=== PATIENT | female | born 1970 | race Two or more races ===

== ENCOUNTER 2020-02-08 11:01 | Outpatient (CLI) | payer OTHER | END 2020-02-08 11:19 | disposition home or self-care (01) | LOC: LAB 11:01 | DX: Z00.00 Encounter for general adult medical examination without abnormal findings (principal); E55.9 Vitamin D deficiency, unspecified; R42 Dizziness and giddiness; N39.0 Urinary tract infection, site not specified; R05 Cough; J06.9 Acute upper respiratory infection, unspecified; E78.49 Other hyperlipidemia ==

== ENCOUNTER 2020-07-20 16:02 | Outpatient (CLI) | payer OTHER | END 2020-07-20 16:03 | disposition home or self-care (01) | LOC: PPH VACUNA 16:02 | DX: Z23 Encounter for immunization (principal) ==

== ENCOUNTER 2020-08-11 10:14 | Emergency (ER) | payer OTHER ==
[~2020-08-11] VITALS: Ht 165.1 cm; Wt 99.8 kg
== END 2020-08-11 13:40 | disposition home or self-care (01) ==
LOC: ER 10:14
DX: M62.830 Muscle spasm of back (principal); M54.5 Low back pain

== ENCOUNTER 2020-10-16 10:25 | Outpatient (CLI) | payer OTHER | END 2020-10-16 18:00 | disposition home or self-care (01) | LOC: PPH VACUNA 10:25 | DX: Z23 Encounter for immunization (principal) ==

== ENCOUNTER 2021-01-29 04:20 | Emergency (ER) | payer OTHER ==
[~2021-01-29] VITALS: Ht 165.1 cm; Wt 102.1 kg
== END 2021-01-29 07:53 | disposition home or self-care (01) ==
LOC: ER 04:20
DX: J45.998 Other asthma (principal); R05 Cough

== ENCOUNTER 2021-04-24 07:36 | Emergency (ER) | payer OTHER ==
[~2021-04-24] VITALS: Ht 165.1 cm; Wt 104.3 kg
[2021-04-24] MEDS ORDERED: SINGULAIR10 MG PO (07:42)
[2021-04-24] MEDS ORDERED: DICLOFENAC SOD100 MG PO (14:07)
[2021-04-24] MEDS ORDERED: ORPHENADRINE C100 MG PO (14:07)
[2021-04-24] MEDS ORDERED: NEURONTIN300 MG PO (14:07)
== END 2021-04-24 14:23 | disposition home or self-care (01) ==
LOC: ER 07:36
DX: M54.16 Radiculopathy, lumbar region (principal); J45.998 Other asthma; M79.661 Pain in right lower leg

== ENCOUNTER 2021-05-25 19:43 | Emergency (ER) | payer OTHER ==
[~2021-05-25] VITALS: Ht 165.1 cm; Wt 104.3 kg
[~2021-05-25 19:43] MED LIST: DICLOFENAC SOD100 MG PO; NEURONTIN300 MG PO; ORPHENADRINE C100 MG PO; SINGULAIR10 MG PO
[2021-05-25] MEDS ORDERED: PROVENTIL HFA6.7 GM (20:28)
== END 2021-05-25 20:59 | disposition home or self-care (01) ==
LOC: ER 19:43
DX: S61.236A Puncture wound without foreign body of right little finger without damage to nail, initial encounter (principal); W46.1XXA Contact with contaminated hypodermic needle, initial encounter; Y93.89 Activity, other specified; Y92.234 Operating room of hospital as the place of occurrence of the external cause; Y99.8 Other external cause status

== ENCOUNTER 2021-06-11 05:48 | Emergency (ER) | payer OTHER ==
[~2021-06-11] VITALS: Ht 165.1 cm; Wt 108.9 kg
[~2021-06-11 05:48] MED LIST changes: +PROVENTIL HFA6.7 GM
== END 2021-06-11 10:43 | disposition home or self-care (01) ==
LOC: ER 05:48
DX: J06.9 Acute upper respiratory infection, unspecified (principal); J45.901 Unspecified asthma with (acute) exacerbation; R06.02 Shortness of breath; Z03.818 Encounter for observation for suspected exposure to other biological agents ruled out

== ENCOUNTER 2021-06-19 08:00 | Outpatient (CLI) | payer OTHER | END 2021-06-19 08:30 | disposition home or self-care (01) | LOC: PPH VACUNA 08:00 | DX: Z23 Encounter for immunization (principal) ==

== ENCOUNTER 2021-07-15 15:12 | Emergency (ER) | payer OTHER ==
[~2021-07-15] VITALS: Ht 165.1 cm; Wt 104.3 kg
[2021-07-15] MEDS ORDERED: KETO10TA2 PO (17:10)
[2021-07-15] MEDS ORDERED: AMRIX30 MG PO (17:10)
[2021-07-15] MEDS ORDERED: NORFLEX100MG PO (17:10)
== END 2021-07-15 17:52 | disposition home or self-care (01) ==
LOC: ER 15:12
DX: M54.5 Low back pain (principal); Z03.818 Encounter for observation for suspected exposure to other biological agents ruled out

== ENCOUNTER 2021-07-23 22:33 | Emergency (ER) | payer OTHER ==
[~2021-07-23] VITALS: Ht 165.1 cm; Wt 99.8 kg
[~2021-07-23 22:33] MED LIST changes: +AMRIX30 MG PO; +KETO10TA2 PO; +NORFLEX100MG PO
[2021-07-23] MEDS ORDERED: NEURONTIN300 MG PO (23:20)
[2021-07-23] MEDS ORDERED: NABUMETONE750 MG PO (23:20)
[2021-07-23] MEDS ORDERED: KETO10TA2 PO (23:20)
== END 2021-07-23 23:24 | disposition home or self-care (01) ==
LOC: ER 22:33
DX: M54.5 Low back pain (principal)

== ENCOUNTER 2021-11-15 08:00 | Outpatient (CLI) | payer OTHER ==
[~2021-11-15 08:00] MED LIST changes: +COZAAR50 MG PO; +GLUMETZA500 MG PO; +NABUMETONE750 MG PO
== END 2021-11-15 08:30 | disposition home or self-care (01) ==
LOC: PPH VACUNA 08:00
PROVIDERS: ATTEND Emergency Medicine Pediatric Emergency Medicine
DX: Z23 Encounter for immunization (principal)
CPT/HCPCS: 90686; G0008

== ENCOUNTER 2022-01-11 07:29 | Outpatient (CLI) | payer OTHER | END 2022-01-11 15:00 | disposition home or self-care (01) | LOC: LAB 07:29 | PROVIDERS: ATTEND General Practice | DX: E78.5 Hyperlipidemia, unspecified (principal); E55.9 Vitamin D deficiency, unspecified; R42 Dizziness and giddiness; E11.9 Type 2 diabetes mellitus without complications; R10.2 Pelvic and perineal pain; L10.9 Pemphigus, unspecified; R10.9 Unspecified abdominal pain ==

== ENCOUNTER 2022-02-14 10:46 | Emergency (ER) | payer OTHER ==
[~2022-02-14] VITALS: Ht 165.1 cm; Wt 104.3 kg
== END 2022-02-14 13:03 | disposition home or self-care (01) ==
LOC: ER 10:46
DX: U07.1 COVID-19 (principal); J32.1 Chronic frontal sinusitis

== ENCOUNTER 2022-02-20 11:54 | Emergency (ER) | payer OTHER ==
[~2022-02-20] VITALS: Ht 165.1 cm; Wt 104.3 kg
== END 2022-02-20 15:23 | disposition home or self-care (01) ==
LOC: ER 11:54
DX: J45.909 Unspecified asthma, uncomplicated (principal); U07.1 COVID-19

== ENCOUNTER → 2022-02-26 | Emergency (ER) | payer OTHER ==
[~2022-02-26] VITALS: Ht 165.1 cm; Wt 104.3 kg
[~2022-02-26] MED LIST changes: +ATACAND HCT 161 EACH PO; +LEVSIN/SL0.125 MG SL; +PEPCID AC20 MG PO
== END | disposition home or self-care (01) ==
LOC: ER 10:49
DX: J45.909 Unspecified asthma, uncomplicated (principal); R05.9 Cough, unspecified; Z86.16 Personal history of COVID-19

== ENCOUNTER 2022-03-17 22:37 | Emergency (ER) | payer OTHER ==
[~2022-03-17] VITALS: Ht 165.1 cm; Wt 104.3 kg
[~2022-03-17 22:37] MED LIST changes: -ATACAND HCT 161 EACH PO; -LEVSIN/SL0.125 MG SL; -PEPCID AC20 MG PO
[2022-03-17] MEDS ORDERED: ATACAND HCT 161 EACH PO (22:57)
== END 2022-03-18 01:05 | disposition home or self-care (01) ==
LOC: ER 22:37
DX: J45.901 Unspecified asthma with (acute) exacerbation (principal); I10 Essential (primary) hypertension; E11.9 Type 2 diabetes mellitus without complications; Z79.84 Long term (current) use of oral hypoglycemic drugs

== ENCOUNTER 2022-03-21 07:08 | Outpatient (CLI) | payer OTHER ==
[~2022-03-21 07:08] MED LIST changes: +ATACAND HCT 161 EACH PO
== END 2022-03-21 07:17 | disposition home or self-care (01) ==
LOC: LAB 07:08
PROVIDERS: ATTEND Internal Medicine Pulmonary Disease
DX: J45.51 Severe persistent asthma with (acute) exacerbation (principal); R06.02 Shortness of breath; U09.9 Post COVID-19 condition, unspecified

== ENCOUNTER 2022-03-25 09:26 | Emergency (ER) | payer OTHER ==
[~2022-03-25] VITALS: Ht 165.1 cm; Wt 104.3 kg
[2022-03-25] MEDS ORDERED: PEPCID AC20 MG PO (13:56)
[2022-03-25] MEDS ORDERED: LEVSIN/SL0.125 MG SL (13:56)
== END 2022-03-25 14:04 | disposition home or self-care (01) ==
LOC: ER 09:26
DX: K76.0 Fatty (change of) liver, not elsewhere classified (principal); R10.9 Unspecified abdominal pain; I10 Essential (primary) hypertension; Z86.39 Personal history of other endocrine, nutritional and metabolic disease

== ENCOUNTER 2022-03-27 06:28 | Outpatient (CLI) | payer OTHER ==
[~2022-03-27 06:28] MED LIST changes: +LEVSIN/SL0.125 MG SL; +PEPCID AC20 MG PO
== END 2022-03-27 06:35 | disposition home or self-care (01) ==
LOC: LAB 06:28
PROVIDERS: ATTEND Internal Medicine Gastroenterology
DX: B17.9 Acute viral hepatitis, unspecified (principal); R10.12 Left upper quadrant pain; Z11.59 Encounter for screening for other viral diseases; R74.8 Abnormal levels of other serum enzymes; D64.9 Anemia, unspecified; D68.9 Coagulation defect, unspecified

== ENCOUNTER 2022-04-19 13:18 | Emergency (ER) | payer OTHER ==
[~2022-04-19] VITALS: Ht 165.1 cm; Wt 104.3 kg
== END 2022-04-19 17:12 ==
LOC: ER 13:18
DX: M54.16 Radiculopathy, lumbar region (principal); M54.9 Dorsalgia, unspecified; M62.838 Other muscle spasm

== ENCOUNTER 2022-08-06 09:52 | Outpatient (CLI) | payer OTHER | END 2022-08-06 10:02 | disposition home or self-care (01) | LOC: PPH VACUNA 09:52 | PROVIDERS: ATTEND Emergency Medicine Pediatric Emergency Medicine | DX: Z23 Encounter for immunization (principal) ==

== ENCOUNTER 2022-08-08 13:17 | Outpatient (CLI) | payer OTHER | END 2022-08-08 13:18 | disposition home or self-care (01) | LOC: PPH VACUNA 13:17 | PROVIDERS: ATTEND Emergency Medicine Pediatric Emergency Medicine | DX: Z23 Encounter for immunization (principal) ==

== ENCOUNTER → 2022-08-27 | Outpatient (CLI) | payer OTHER | END | disposition home or self-care (01) | LOC: LAB 06:29 | PROVIDERS: ATTEND General Practice | DX: Z00.00 Encounter for general adult medical examination without abnormal findings (principal); E78.5 Hyperlipidemia, unspecified; E55.9 Vitamin D deficiency, unspecified; N39.0 Urinary tract infection, site not specified; R42 Dizziness and giddiness; I10 Essential (primary) hypertension; E11.9 Type 2 diabetes mellitus without complications; R10.2 Pelvic and perineal pain ==

== ENCOUNTER 2024-08-06 09:14 | Emergency (ER) | payer OTHER ==
[~2024-08-06] VITALS: Ht 165.1 cm; Wt 105.7 kg
[2024-08-06] MEDS ORDERED: CEFTRIAXONE SODIUM 2,000 MG VIAL IV ONE (10:15)
[2024-08-06] MEDS ORDERED: PEPCID AC20 MG PO (11:34)
[2024-08-06] MEDS ORDERED: DOXYCYCLINE HY100 M2 PO (11:34)
[2024-08-06] MEDS ORDERED: BACTRIM DS TAB1 EACH PO (11:34)
== END 2024-08-06 13:35 | disposition home or self-care (01) ==
LOC: ER 09:16
DX: L73.2 Hidradenitis suppurativa (principal); I10 Essential (primary) hypertension; E11.9 Type 2 diabetes mellitus without complications; Z79.84 Long term (current) use of oral hypoglycemic drugs; Z87.09 Personal history of other diseases of the respiratory system

== ENCOUNTER → 2024-08-06 13:18 | Outpatient (CLI) | payer OTHER ==
[~2024-08-06 13:18] MED LIST changes: +BACTRIM DS TAB1 EACH PO; +DOXYCYCLINE HY100 M2 PO
== END | disposition home or self-care (01) ==
LOC: LAB 13:18
PROVIDERS: ATTEND General Practice
DX: L02.91 Cutaneous abscess, unspecified (principal)

== ENCOUNTER 2024-11-19 11:55 | Emergency (ER) | payer OTHER ==
[~2024-11-19] VITALS: Ht 165.1 cm; Wt 98.0 kg
[2024-11-19] MEDS ORDERED: SINGULAIR4 M1 PO (12:05)
[2024-11-19] MEDS ORDERED: LEVALBUTEROL HCL 1.25 MG/3 ML SOLUTION IH ONE ×2 (13:30→14:02)
[2024-11-19] MEDS ORDERED: IPRATROPIUM BROMIDE 0.5 MG/2.5 ML AMPUL.NEB IH ONE ×2 (13:30→14:02)
[2024-11-19] MEDS ORDERED: MAGNESIUM SULFATE IN WATER 2 GM/50 ML PIGGYBAG IV ONE (13:30)
[2024-11-19] MEDS ORDERED: METHYLPREDNISOLONE SOD SUCC 40 MG VIAL IM ONE (13:30)
[2024-11-19] MEDS ORDERED: METHYLPREDNISOLONE SOD SUCC 40 MG VIAL ONE (13:49)
[2024-11-19] MEDS ORDERED: MAGNESIUM SULFATE 50% 5,000 MG/10 ML VIAL ONE (13:51)
[2024-11-19 15:35] LABS: ABG PH 7.437 (7.35-7.45); ABG pCO2 34.7 mmHg (35-45)
[2024-11-19 15:36] LABS: ABG PO2 90.8 mmHg (80-100); BASE EXCESS -0.7 mmol/l; BICARBONATE 22.8 mmol/l (23-25); SaO2 97.3 %; Tco2 23.9 mmol/l; allen test SATISFACTORY; o2 21 %; puncture site RADIAL RIGHT
[2024-11-19 15:38] LABS: HEMATOCRIT 45.6 % (36.0-45.00); MEAN CELL VOLUME 93.3 fL (80.00-100.00); MEAN CORPUSCULAR HEMOGLOBIN 32.7 pg (27.00-32.0); MEAN CORPUSCULAR HGB CONC 35.1 g/dl (32.0-36.0); PLATELET COUNT 254 K/uL (150-450); RED BLOOD COUNT 4.89 M/uL (4.00-6.00); RED CELL DISTRIBUTION WIDTH 12.2 % (11.5-14.5)
[2024-11-19 15:42] LABS: ALBUMIN 3.7 gm/dL (3.4-5.0); BILIRUBIN TOTAL 0.8 mg/dL (0.3-1.2); CALCIUM 10.2 mg/dL (8.5-10.1); CREATININE SERUM 0.7 mg/dL (0.55-1.02); GFR 87.2; GLOBULINA 4.1 G/DL (2.4-3.5); POTASSIUM 3.97 mEq/L (3.5-5.1); TOTAL PROTEIN 7.8 gm/dL (6.4-8.2)
== END 2024-11-19 16:41 | disposition home or self-care (01) ==
LOC: ER 11:55
PROVIDERS: General Practice
DX: J45.909 Unspecified asthma, uncomplicated (principal)